=== PATIENT | female | born 1965 | race African-American/Black ===

== ENCOUNTER 2017-06-07 17:45 | Emergency (ER) | payer OTHER ==
[~2017-06-07] VITALS: Ht 160 cm; Wt 113.4 kg
--- NOTE | ~2017-06-07 | CT2 ---
[facility] A Service of [facility] & [facility] RADIOLOGY TEXT RESULTS PATIENT: FRANCK LAO LOCATION: SED : 65 UNIT #: [id number] AGE: [address]: Yunior Garcia MD SEX: F ORDER DR: [id number] [address] [id number] MR#: [id number] #: [id number] NAME: FRANCK LAO. : 1965 SEX: F STUDY DATE/TIME: 06/07/2017 19:54 UNIT: SED ROOM: STUDY DESCRIPTION: CT Abd and Pelv W Cont Attending Physician: Yunior Garcia M.D. Ordering Physician: Yunior Garcia M.D. Primary Care Physician: Primary Care Physician No MEDICAL IMAGING REPORT This report is preliminary unless electronic signature is present. EXAM CT scan of the abdomen and pelvis with contrast 06/07/2017 HISTORY Palpable mass and fullness and pain left side of rectum with induration on physical examination today. Left gluteal fold. Symptoms for 3 days. Rectal abscess. TECHNIQUE Spiral CT was performed through the abdomen and pelvis following intravenous contrast administration only as per clinician request. The CT exam was performed with one or more of the following radiation dose reduction techniques: automatic exposure control, adjustment of mA and/or kV according to patient size, and iterative reconstruction. FINDINGS Abdomen: Exam is limited by the lack of oral contrast. The liver, spleen, pancreas, adrenal glands and kidneys are normal. The gallbladder is surgically absent. Pelvis Findings: There is colonic diverticulosis without evidence of diverticulitis. The gut is otherwise unremarkable. No adenopathy is seen and there is no free fluid in the abdomen or pelvis. There is a 2.2 cm x 1.6 cm rim-enhancing fluid collection located along the medial aspect of the left gluteal fold inferiorly. There is inflammatory stranding in the surrounding subcutaneous fat as well as skin thickening along the medial aspect of the left gluteal fold. No gas is seen within the collection but it is suspicious for abscess. Clinical correlation is recommended. The lung bases demonstrate bibasilar atelectasis. STS. [facility] A Service of [facility] & [facility] RADIOLOGY TEXT RESULTS PATIENT: FRANCK LAO LOCATION: [facility] [place] : 65 UNIT #: [id number] AGE: [address]: Yunior Garcia MD SEX: F ORDER DR: IMPRESSION 1. Exam is limited by the lack of oral contrast. 2. 2.2 cm x 1.6 cm rim-enhancing fluid collection along the medial aspect of the left gluteal fold with surrounding subcutaneous edema and skin thickening along the medial aspect of the left gluteal fold. No gas is seen within the collection but it is suspicious for abscess. Clinical correlation recommended. 3. Diverticulosis. No evidence of diverticulitis. 4. 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 Cholecystectomy. Dictated by... Lester Mina M.D. THIS IS AN ELECTRONICALLY VERIFIED REPORT Lester Mina M.D. at 06/08/2017 2:21 PM BERNADETTE/king TD: 06/08/2017 12:47 JOB #: [id number] MEDICAL IMAGING REPORT Page 1 of 1
[2017-06-07] MEDS ORDERED: ZYLOPRIM (18:35)
[2017-06-07] MEDS ORDERED: PRILOSEC (18:36)
[2017-06-07 19:18] LABS: BASOPHIL# 0.1 X10e3 (0-0.3); BASOPHIL% 1.2 % (0-2.5); EOSINOPHIL# 0.2 X10e3 (0-0.7); EOSINOPHIL% 1.8 % (0.0-7.0); HEMATOCRIT 37.4 % (35.0-45.0); LYMPHOCYTE# 1.5 X10e3 (1.0-3.5); LYMPHOCYTE% 17.4 % (17.0-45.0); MEAN CELL VOLUME 85.9 FL (83-96); MEAN CORPUSCULAR HEMOGLOBIN 27.6 PG (28-34); MEAN CORPUSCULAR HGB CONC 32.2 g/dL (30-36); MONOCYTE# 0.5 X10e3 (0-1.0); MONOCYTE% 6.1 % (3.0-12.0); NEUTROPHIL# 6.5 X10e3 (1.5-7.1); NEUTROPHIL% 73.5 % (40-75); PLATELET COUNT 215 X10e3 (140-420); RED BLOOD COUNT 4.36 X10e (3.90-5.30); RED CELL DISTRIBUTION WIDTH 17.2 % (11.0-15.5); WHITE BLOOD COUNT 8.9 X10e3 (4.0-10.5)
[2017-06-07 19:19] LABS: DIFF IND NO
[2017-06-07 19:33] LABS: ALBUMIN SERUM 3.8 g/dL (3.5-5.0); ALKALINE PHOSPHATASE 82 U/L (32-92); ALT (SGPT) 10 U/L (10-40); AST (SGOT) 19 U/L (10-42); BILIRUBIN, DIRECT <0.1 mg/dL (0.0-0.2); BILIRUBIN,INDIRECT 0.4 mg/dL (0.0-0.9); BILIRUBIN,TOTAL 0.5 mg/dL (0.2-2.0); BLOOD UREA NITROGEN 20 mg/dL (9-23); BUN/CREATININE RATIO 22.22; CALCIUM SERUM 8.3 mg/dL (8.4-10.2); CARBON DIOXIDE 24 mmol/L (22-31); CHLORIDE 106 mmol/L (100-111); CREATININE SERUM 0.9 mg/dL (0.6-1.4); GLOM FILT RATE Estimated 85.3 mL/min (>60); GLUCOSE FASTING 96 mg/dL (70-110); POTASSIUM 4.6 mmol/L (3.5-5.1); PROTEIN TOTAL SERUM 7.7 g/dL (6.0-8.3); SODIUM 139 mmol/L (135-145)
== END 2017-06-07 22:30 | disposition home or self-care (01) ==
LOC: SED 17:45
PROVIDERS: Emergency Medicine
DX: K61.1 Rectal abscess (principal); M10.9 Gout, unspecified; F17.200 Nicotine dependence, unspecified, uncomplicated
CPT/HCPCS: 36415; 74177; 80048; 80076; 83605; 85025; 87040; 96365; 96375; 96376; 99284; J1170; J2270; J2405; J3370; Q9967